=== PATIENT | female | born 1980 | race Caucasian/White ===

== ENCOUNTER 2023-07-07 17:39 | Outpatient (REF) | payer BC, SELFPAY ==
[2023-07-07 21:33] LABS: Calculated LDL 186 mg/dL (<100); Cholesterol 276 mg/dL (<200); HDL Cholesterol 74 mg/dL (40-60); TSH 9.25 uIU/mL (0.36-3.74); Triglyceride 82 mg/dL (<150)
[2023-07-07 21:49] LABS: FREE T4 0.81 ng/dL (0.76-1.46)
== END 2023-07-07 17:40 | disposition home or self-care (01) ==
LOC: NCHCN 17:39
PROVIDERS: PCP Family Medicine; Visit Provider Family Medicine
DX: Z13.220 Encounter for screening for lipoid disorders (principal); E02 Subclinical iodine-deficiency hypothyroidism
CPT/HCPCS: 80061; 84439; 84443

== ENCOUNTER 2023-09-04 14:43 | Outpatient (REF) | payer BC, SELFPAY ==
[2023-09-04 16:21] LABS: Vitamin D 25 Total 33.6 ng/mL (30-100)
[2023-09-04 16:28] LABS: FREE T4 1.11 ng/dL (0.76-1.46); TSH 1.94 uIU/mL (0.36-3.74); Vitamin B12 535 pg/mL (193-986)
[2023-09-04 21:50] LABS: T3,Free 3.7 pg/mL (2.8-5.3)
== END 2023-09-04 14:44 | disposition home or self-care (01) ==
LOC: LBN 14:43
PROVIDERS: PCP Family Medicine; Visit Provider Internal Medicine Endocrinology, Diabetes & Metabolism
DX: E06.3 Autoimmune thyroiditis (principal); E53.8 Deficiency of other specified B group vitamins; E55.9 Vitamin D deficiency, unspecified
CPT/HCPCS: 82306; 82607; 84439; 84443; 84481

== ENCOUNTER 2024-04-22 15:46 | Outpatient (REF) | payer BC, SELFPAY ==
--- OUTSIDE RECORDS SUMMARY | 2024-04-22 15:50 | XMS_ITS | Continuity of Care Document ---
Author Organization [facility] Address [address] [place] [address] Care Team Providers [facility] [place] [facility] Director Name Role Phone KETAN TRAORE Spinal Orthopedic Surgeon Assessment Encounter Date Assessment Date Assessment LastModified by Organization Details LastModified Time 03/24/2024 03/24/2024 The total time devoted to today's encounter, including both the tqme-bc-yfvm time with the patient and/or family/caregi atilio and mjo-yasn-ja-f fidel time I personally spent is 35 minutes. [email or web address] Not available 03/24/2024 19:39:09 Plan of Treatment Reminders Order Date Submit Date Provider Last Modified By Organization Details Last Modified Time Details Appointments Acute 20 024 02:20PM Not available Not available Not available Lab None recorde d. Referral None recorde d. Procedures None recorde d. Surgeries None recorde d. Imaging None recorde d. Medication Orders None recorde d. Patient TargetsNo targets recorded. Patient InstructionsNo instructions recorded. Reason for Referral Infertility Reproductive End ocrinology Referral for Fertility education Referral for Appt with Dr. Sofia Main today 07/09/23 Referring Physician: Ketan Miller, Family Medicine, Encounter Date: 07/08/2023 Problems Name Problem SNOMED Code Status Onset Date Resolution Date Notes Provider Name and Address Organization Details Recorded Time Uses contrace ption 57326974 Completed 200305/20/2023 Not Available [facility] 05:35:53 Depressi ve disorder 98832592 Active [address], [facility] [address] , [facility] 3 14:49:17 Reproduc tidougie bradshawi ng Completed 202211/06/[address], [facility] [address] , [facility] 4 16:20:14 Subclini katerine hypothyr oidism 11531324 Completed 202211/06/[address], [place] [address] , [facility] 4 16:20:14 Hyperlip idemia 87466969 Active [address], [place] [address] , [facility] 3 08:21:23 Nervous system and sense organ diseases 720483658 Completed 202211/06/[address], [place] [address] , [facility] 4 16:20:14 History of musculos keletal disease 827166378 Completed 202211/06/[address], [place] [address] , [facility] 4 16:20:14 History of dysplasi a of cervix 147950946 Active 2022 Problem Code: Z87.410; Problem Code Type: ICD-10; Not Available [facility] 4 05:35:51 Herpesvi adriana infectio n 16851321 Active 2022 Problem Code: B00.9; Problem Code Type: ICD-10; Not Available [facility] 4 05:35:51 [place]weig ht 033239344 Active 2022 Problem Code: E66.3; Problem Code Type: ICD-10; Not Available [facility] 4 05:35:51 Binge eating disorder 920585801 Completed 202211/06/2023 Problem Code: F50.81; Problem Code Type: ICD-10; MD Mary [address], [place], [address] , [facility] 4 16:20:14 Major depressi on, single episode 24890191 Active 202205/20/20 23 - Comments only - Ketan Miller MD - With passive suicidal ideation . Low risk for suicide attempt. After review of options, she is agreeabl e to a trial of medicati on. We will start fluoxeti ne 20 mg daily (which her cat also takes). Reviewed potentia l side effects and timeline to see expected benefits . Follow-u p in 1 month planned. HCM: She received flu vaccine today. Is up-to-da te with Tdap and had recent COVID infectio n. Last Pap 2 years ago, may need another soon given history of SELAM-3 9 years ago. Will pursue prior from [facility] medicine . Problem Code: F32.9; Problem Code Type: ICD-10; Not Available [facility] 4 05:35:52 Suicidal thoughts 2223703 Completed 202211/06/2023 Problem Code: R45.851; Problem Code Type: ICD-10; MD Mary [address], [place], [address] , [facility] 4 16:20:14 History of cardiova scular disease 002056914 Completed 202211/06/2023 Problem Code: Z86.79; Problem Code Type: ICD-10; MD Mary [address], [place], [address] , [facility] 4 16:20:14 Hypothyr oidism 97042371 Active 2022 Problem Code: E03.9; Problem Code Type: ICD-10; Not Available [facility] 4 05:35:52 Reproduc tive care manageme nt Active 202205/20/20 23 - Comments only - Ketan Miller MD - advised daily folate if activing trying to become . Problem Code: Z31.69; Problem Code Type: ICD-10; Not Available [facility] 4 05:35:52 Past pregnanc y history of complica tion of pregnanc y, childbir th and/or puerperi [id number] 4109 Completed 202211/06/2023 Problem Code: Z87.59; Problem Code Type: ICD-10; MD Mary [address], [place], [place], [address] [place] [address] , [facility] 4 16:20:14 Dysuria 04987187 Completed 202211/06/2023 Problem Code: R30.0; Problem Code Type: ICD-10; MD Mary [address], [place], [place], [address] [place] [address] , [facility] 4 16:20:14 Increase d frequenc y of urinatio n 424967869 Completed 202211/06/2023 Problem Code: R35.0; Problem Code Type: ICD-10; MD Mary [address] Dr, [place] [address] , [facility] 4 16:20:14 Lumbosac ral radiculo vipin 4828588 Completed 202205/20/2023 Problem Code: M54.16; Problem Code Type: ICD-10; Not Available [facility] 4 05:35:52 Benign neoplasm of skin 40570638 Completed 202205/20/2023 Problem Code: D23.9; Problem Code Type: ICD-10; Not Available [facility] 4 05:35:53 Dysplasi a of cervix 97291930 Completed 202207/21/2023 Problem Code: N87.9; Problem Code Type: ICD-10; Not Available [facility] 4 05:35:53 Lumbago with sciatica 070940769 Completed 202207/21/2023 Problem Code: M54.42; Problem Code Type: ICD-10; Not Available [facility] 4 05:35:53 Pain in thoracic spine 323790932 Completed 202207/21/2023 Problem Code: M54.9; Problem Code Type: ICD-10; Not Available [facility] 4 05:35:53 Chronic pain 17320094 Completed 202205/20/2023 Problem Code: G89.29; Problem Code Type: ICD-10; Not Available [facility] 4 05:35:53 Prolapse d lumbar interver tebral disc 833831040 Completed 202311/06/[address], [facility] [address] [place] [address] 16:20:38 Chronic low back pain 899831110 Active [address], [facility] [address] [facility] 16:20:49 Acute low back pain 118964757 Active [address], [facility] [address] [place] [address] 17:39:54 Notes:*Problem Name: Allergy Pertussis *ICD-10 Codes: *Problem Status: active *Comments: *Note Date: 02/20/2004 *Problem Name: Ascus Pap, + Hpv *ICD-10 Codes: *Problem Status: active *Comments: *Note Date: 09/25/2009 *Problem Name: Allergy Pertussis *ICD-10 Codes: *Problem Status: inactive *Comments: *Note Date: 02/20/2004 *Problem Name: Ascus Pap, + Hpv *ICD-10 Codes: *Problem Status: inactive *Comments: *Note Date: 09/25/2009 *Problem Name: Hahc Depression *ICD-10 Codes: *Problem Status: inactive *Comments: *Note Date: 07/29/2004 *Problem Name: Allergy Pertussis *ICD-10 Codes: *Problem Status: inactive *Comments: *Problem Code Type: CPT *Note Date: 02/20/2004 *Problem Name: Ascus Pap, + Hpv *ICD-10 Codes: *Problem Status: inactive *Comments: *Problem Code Type: CPT *Note Date: 09/25/2009 *Problem Name: Hahc Depression *ICD-10 Codes: *Problem Status: inactive *Comments: *Problem Code Type: CPT *Note Date: 07/29/2004 Problem Notes None recorded. Procedures Surgical History Date Name Laterality Status Provider Name and Address Organization Details Recorded Time [facility] 14:18:13 Imaging Results None recorded. Procedure Notes None recorded. Medical Equipment None Reported. Allergies Allergen ID Allergen Name Allergen Category Reaction Reaction Severity Criticality Documentation Date Start Date Code Code System Note Provider Name and Address Organization Details Recorded Time 72090 pertussis vaccine medicatio n Not available Not available Not available 06/19/20232003 8080 RxNorm Not Available [facility] 16:22:10 Medications Name Sig Start Date Stop Date Status Note LastModified by Organization Details LastModified Time cyclobenzap rine 10 mg tablet TAKE 1 TABLET BY MOUTH EVERY 8 HOURS NEEDED FOR MUSCLE SPASMS 11/05 completed Not Available Not Available Not Available prednisone 10 mg tablet 11/05 completed Not Available Not Available Not Available Medrol (Geraldo) 4 mg tablets in a dose pack Take as directed on package 2023 active Not Available Not Available Not Avai lable Zithromax 250 mg tablet 4 CAPS NOW 08/20 completed Not Available Not Available Not Available Diflucan 150 mg tablet 1 08/20 completed Not Available Not Available Not Available acyclovir 400 mg tablet 1 twice a day 05/20 completed Not Available Not Available Not Available levothyroxi ne 25 mcg tablet active Not Available Not Available Not Available levothyroxi ne 100 mcg tablet TAKE 1 TABLET BY MOUTH EVERY DAY BEFORE MEDICINES OR FOOD OR VITAMINS active Not Available Not Available No t Available Metrogel Vaginal 0.75 % (37.5 mg/5 gram) 1APP PV QHS 08/05 completed Not Available Not Available Not Available lorazepam 0.5 mg tablet tablet 05/20 completed Not Available Not Available Not Available phenazopyri dine 100 mg tablet Take 1 tablet by mouth three times a day for UTI [place], 2 day supply 11/05 completed Not Available Not Available Not Available cephalexin 500 mg capsule Take 1 capsule by mouth twice a day for UTI. 11/05 completed Not Available Not Available Not Available Ortho-Novum /35 (28) 1 mg-35 mcg tablet once a day 05/20 completed Not Available Not Available Not Available ibuprofen 200 mg tablet active Not Available Not Available Not Available Valtrex 500 mg tablet 1 TAB qd 01/15 completed Not Available Not Available Not Available fluoxetine 20 mg capsule TAKE 1 CAPSULE BY MOUTH EVERY DAY active Not Available Not Available No t Available Clomid 50 mg tablet TAKE 1 TABLET BY MOUTH DAILY ON CYCLE DAYS 5-9. DO NOT TAKE UNTIL AFTER A NEGATIVE TEST active Not Available Not Available No t Available Co Q-10-Vitami n E-Fish Oil 25 mg-150 (90-60) mg-200 unit capsule active Not Available Not Available Not Available folic acid active Not Available Not Av ailable Not Available Vitamin D3 active Not Available Not Av ailable Not Available Vitamin B12 active Not Available Not A vailable Not Available ferrous gluconate 324 mg (38 mg iron) tablet 05/20 completed Not Available Not Available Not Available biotin 2,500 mcg capsule 05/20 completed Not Available Not Available Not Available Multivitami ns 28 mg iron-800 mcg tablet active Not Available Not Available N ot Available Gabby 0.25 mg-35 mcg tablet 11/05 completed Not Available Not Available Not Available Vitals None Recorded Social History Question Answer Notes LastModified by Organizat ion Details LastModified Time Tobacco Smoking Status Never Smoker FRANCISCO SCOTT MA null, [place] - [facility]. 07/07/2023 14:17:46 What Was The Date Of Your Most Recent Tobacco Screening? 12/02/2023 [email or web address] Information not available 12/02/2023 Do You Or Have You Ever Used Any Other Forms Of Tobacco Or Nicotine? No [email or web address] Information not available 07/07/2023 Sex: Female Functional Status None recorded. Mental Status None recorded. Family History Nothing Reported Notes:*Problem: Mother: asth ma, migraines Father: DM, Afib MG: Lung cancer PGF: CAD Maternal cousin: breast cancer Medical History No medical history recorded. Gynecological HistoryNo gynecological history recorded. Obstetrics History GPAL:G 0 P 0 0 0 0 Immunizations Vaccine Type Date Status Provider Name and Address Organization Details Recorded Time COVID-19, mRNA, LNP-S, PF, nisha-sucrose, 30 mcg/0.3 mL 07/07/2023 completed MD [address], [place], [address], [facility] 07/07/2023 17:09:15 Td(adult) unspecified formulation 05/06/2016 completed Not Available [facility] 08/21/2023 05:31:23 Influenza, split virus, quadrivalent, PF 05/20/2023 completed Not Available [facility] 08/21/2023 05:31:23 SARS-COV-2 (COVID-19) vaccine, UNSPECIFIED 12/05/2020 completed Not Available [facility] 08/21/2023 05:31:23 SARS-COV-2 (COVID-19) vaccine, UNSPECIFIED 12/05/2022 completed Not Available [facility] 08/21/2023 05:31:23 SARS-COV-2 (COVID-19) vaccine, UNSPECIFIED 01/02/2021 completed Not Available [facility] 08/21/2023 05:31:23 SARS-COV-2 (COVID-19) vaccine, UNSPECIFIED 07/31/2021 completed Not Available [facility] 08/21/2023 05:31:23 influenza, unspecified formulation 05/16/2016 completed Not Available [facility] 08/21/2023 05:31:23 influenza, unspecified formulation 07/19/2018 completed Not Available [facility] 08/21/2023 05:31:23 Past Encounters Encounter ID Performer Location Encounter Start Date Encounter Closed Date Diagnosis/Indication Diagnosis SNOMED-CT Code Diagnosis ICD10 Code [id number] KETAN MILLER MD [address] [address] 03/24/2024 15:44:25 03/24/2024 17:10:30 Reproductive care management [id number] Z31.9 Health Concerns Section Related Observation LastModified by Organization Detai ls LastModified Time None Recorded Concern Status LastModified by Organization Details LastModified Time None Recorded Payers Encounter Date Sequence Insurance Name Policy Number Policy Day Covered Member ID Day Member ID Guarantor Name 03/24/2024 1 [place] [facility] [id number] Ketan Salcedorux [id number] Ketan Marie [employer] Notes Date Note Type Note Provider Name and Address Organization Details Recorded Time 03/24/2024 text/html HPI Notes: Sabrina nt seen via telehealth to discuss infertility. She has failed 3 rounds of IUI through reproductive medicine, and is considering a live donor. Her next window of opportunity is approaching prior to next scheduled follow-up with reproductive medicine, and she had some questions regarding STI screening, and other more general questions she wanted to run by me. She has been practicing acupuncture, Reiki, and other self-care strategies including careful attention to diet and exercise in an attempt to increase her odds of becoming . She has also taken Clomid to boost egg production. KETAN MILLER MD [address], [place], [address], [facility] - [facility]. 03/24/2024 19:39:49 OBGyn Episode No OBEpisode recorded.
--- OUTSIDE RECORDS SUMMARY | 2024-04-22 15:50 | XMS_ITS | Data Portability ---
Author Organization [facility], [facility] Address [address] [place] [address] Care Team Providers Care Pill Maker Name Role Phone TRAOREKETAN Spinal Orthopedic Surgeon Assessment Encounter Date Assessment Date Assessment LastModified by Organization Details LastModified Time 11/06/2023 11/06/2023 The total time devoted to today's encounter, including both the dirl-zh-mbtx time with the patient and/or family/caregi atilio and ydl-tpnq-mn-f fidel time I personally spent is 40 minutes. Not available 11/06/2023 16:23:01 12/02/2023 12/02/2023 The total time devoted to today's encounter, including both the tmjp-me-hrqd time with the patient and/or family/caregi atilio and enj-voaw-ye-f fidel time I personally spent is 25 minutes. Not available 12/02/2023 18:51:15 03/24/2024 03/24/2024 The total time devoted to today's encounter, including both the hfbt-oq-rfjk time with the patient and/or family/caregi atilio and ehl-okmh-gt-f fidel time I personally spent is 35 minutes. [email or web address] Not available 03/24/2024 19:39:09 Plan of Treatment Reminders Order Date Submit Date Provider Last Modified By Organization Details Last Modified Time Details Appointments Acute 20 2023 02:20P M Not available Not available Not available Lab TSH + free T4, serum 2022 023 [email or web address] n21 [facility] (Registration ), [address] [facility] [place], [address], 07/15/2023 08:14:35 lipid panel, serum 2022 023 [email or web address] n21 [facility] (Registration ), [address] [place] [address] [place], [address], 07/15/2023 08:14:34 venipunct ure 2023 024 [email or web address] Not available 09/04/2023 11:50:21 Referral None recorded. Procedures None recorded. Surgeries None recorded. Imaging None recorded. Medication Orders fluoxetin e 20 mg capsule 2023 024 [id number], [address], [place], [place], [id number], 11/06/2023 16:23:39 Medrol (Geraldo) 4 mg tablets in a dose pack [address] [facility][id number], [address], [place], [place], [id number], 03/24/2024 10:29:41 Patient TargetsNo targets recorded. Patient InstructionsNo instructions recorded. Reason for Referral Infertility Reproductive End ocrinology Referral for Fertility education Referral for Appt with Dr. Sofia Main today 07/09/23 Referring Physician: Ketan Miller, Family Medicine, Encounter Date: 07/08/2023 Results Created Date Observation Date Name Description Value Unit Range Abnormal Flag Note LastModifiedBy Organization Detail LastModifiedTime 07/07/2007/07/2023 LIPID 2 cholesterol 276 mg/dL <200 high Not Available [address] [place], [address] 07/07/2023 21:54:02 07/07/20 23 07/07/2023 LIPID 2 triglyceride 82 mg/dL <150 Not Available [address] [place], [address] 07/07/2023 21:54:02 07/07/2007/07/2023 LIPID 2 HDL cholesterol 74 mg/dL 40-60 Not Available Deepika guillory [address] [place], [address] 07/07/2023 21:54:02 07/07/20 23 07/07/2023 LIPID 2 calculated LDL 186 mg/dL <100 high Natio nal Betina stero l Educa tion Progr am (NCEP -ATPI II) class ifica tions : Betina stero l <200 mg/dL Lopez able Betina stero l 200-2 39 mg/dL Borde rline High Betina stero l >or=2 40 mg/dL High HDL <40 mg/dL Low HDL >or=6 0 mg/dL High LDL <100 mg/dL Optim al LDL 100-1 29 mg/dL Near Optim al/Ab ove Optim al LDL 130-1 59 mg/dL Borde rline High LDL 160-1 89 mg/dL High LDL >or=1 90 mg/dL Very High *The above refer ence range is for adult s 18 years or older . Not Available [address] [place], [address] 07/07/2023 21:54:02 07/07/2007/07/2023 TSH TSH 9.25 uIU/m L 0.36-3 .74 high NOTE: Supra -phys iolog ic doses of Bioti n(B7) may cause false negat yarely resul ts. Not Available [address] [place], [address] 07/07/2023 21:54:03 07/07/2007/07/2023 FREE T4 free T4 0.81 NG/dL 0.76-1 .46 normal Not Available [address] [place], [address] 07/07/2023 21:54:03 07/07/2007/07/2023 TSH, serum or plasm a TSH, serum or plasma 9.25 micro intl_ units /mL 0.36-3 .74 high Not Available Not Available 03/11/2024 23:14:42 07/07/20 23 07/07/2023 T4, free, serum T4, free, serum 0.81 NG/dL 0.76-1 .46 normal Not Available Not Available 03/11/2024 23:14:42 07/07/20 23 07/07/2023 lipid panel , blood cholesterol, total, serum 276 mg/dL <200 high Not Available Not Available 03/11/2024 23:14:41 07/07/20 23 07/07/2023 lipid panel , blood HDL 74 mg/dL 40-60 Not Available Not Availa ble 03/11/2024 23:14:41 07/07/20 23 07/07/2023 lipid panel , blood LDL 186 mg/dL <100 high Not Available Not Availa ble 03/11/2024 23:14:41 07/07/20 23 07/07/2023 lipid panel , blood triglyceride , 12H fasting, qn, serum or plasma 82 mg/dL <150 Not Available Not Available 09/2023 23:14:41 07/13/20 23 07/13/2023 HEMOG KINSEY + PLATE LET WO DIFF hemogram + platelet wo diff HEMOG KINSEY Not Available [facility] (Lab) [address] [place] [address], [id number], 07/13/2023 15:22:57 07/13/20 23 07/13/2023 HEMOG KINSEY + PLATE LET WO DIFF WBC 5.79 TH/cm m 5.00 - 10.00 Not Available [facility] (Lab) [address] [place] [address], [id number], 07/13/2023 15:22:57 07/13/20 23 07/13/2023 HEMOG KINSEY + PLATE LET WO DIFF NRBC % 0.0 % 0.0 - 0.0 Not Available [facility] (Lab) [address] [place] [address], [id number], 07/13/2023 15:22:57 07/13/20 23 07/13/2023 HEMOG KINSEY + PLATE LET WO DIFF NRBC abs count 0.0 mil/c mm 0.0 - 0.0 Not Available [facility] (Lab) [address] [place] [address], [id number], 07/13/2023 15:22:57 07/13/20 23 07/13/2023 HEMOG KINSEY + PLATE LET WO DIFF RBC 4.08 mil/c mm 3.90 - 5.40 Not Available [facility] (Lab) [address] [place] [address], [id number], 07/13/2023 15:22:57 07/13/20 23 07/13/2023 HEMOG KINSEY + PLATE LET WO DIFF hemoglobin 12.1 gm/dL 12.0 - 16.0 Not Available [facility] (Lab) [address] [place] [address], [id number], 07/13/2023 15:22:57 07/13/20 23 07/13/2023 HEMOG KINSEY + PLATE LET WO DIFF hematocrit 36 % 37 - 47 low Not Available [facility] (Lab) [address] [place] [address], 65[address], 07/13/2023 15:22:57 07/13/20 23 07/13/2023 HEMOG KINSEY + PLATE LET WO DIFF MCV 89 fL 82 - 92 Not Available [facility] (Lab) [address] [place] [address], [id number], 07/13/2023 15:22:57 07/13/20 23 07/13/2023 HEMOG KINSEY + PLATE LET WO DIFF MCH 29.7 pg 27.0 - 31.0 Not Available [facility] (Lab) [address] [place] [address], [address], 07/13/2023 15:22:57 07/13/20 23 07/13/2023 HEMOG KINSEY + PLATE LET WO DIFF MCHC 33.5 % 32.0 - 36.0 Not Available [facility] (Lab) [address] [place] [address], [address], 07/13/2023 15:22:57 07/13/20 23 07/13/2023 HEMOG KINSEY + PLATE LET WO DIFF RDW-SD 41.2 fL 39.0 - 49.0 Not Available [facility] (Lab) [address] [place] [address], [address], 07/13/2023 15:22:57 07/13/20 23 07/13/2023 HEMOG KINSEY + PLATE LET WO DIFF platelet count 346 TH/cm m 150 - 450 Not Available [facility] (Lab) [address] [place] [address], [address], 07/13/2023 15:22:57 07/13/20 23 07/13/2023 ABO + RH TYPIN G* ABO + Rh typing* ABO and Rh BLOOD GROUP ING Not Available [facility] (Lab) [address] [place] [address], [address], 07/13/2023 15:50:03 07/13/20 23 07/13/2023 ABO + RH TYPIN G* blood group A Not Available [facility] (Lab) [address] [place] [address], [address], 07/13/2023 15:50:03 07/13/20 23 07/13/2023 ABO + RH TYPIN G* Rh (D) POSITI VE Not Available [facility] (Lab) [address] [place] [address], [address], 07/13/2023 15:50:03 07/13/20 23 07/14/2023 ESTRA DIOL E2 estradiol E2 _ESTR ADIOL _ Estra diol Repor anmol: 07/13 23:28 Statu s=F ----- ----- ----- ----- ----- ----- ----- ----- ----- ----- ----- ----- ----- ----- ----- ----- TEST RESUL T FLAG RANGE UNITS ----- ----- ----- ----- ----- ----- ----- ----- ----- ----- ----- ----- ----- ----- ----- ----- Estra diol 37 See Note pg/mL 07/13.2 332.r fl.CO MYRA Patrick NOTE: FEMAL E REFER ENCE RANGE S: MENST RUATI NG By cycle day relat yarely to LH peak Folli cular (-12 to -4 days) 20-14 4 pg/mL Midcy sharron (-3 to +2 days) 64-35 7 pg/mL Lutea l (+4 t0 +12 days) 56-21 4 pg/mL POSTM ENOPA USAL <32 pg/mL *Cros s react ivity with Fulve stran t could lead to a false ly eleva anmol estra diol resul t in patie nts treat ed with this drug. Test perfo rmed or refer red by [facility] [address], [place] [address] 07/14.0 742.A LS.to [phone] via fax Not Available [facility] (Lab) [address] [place] [address], [address], 07/14/2023 07:44:08 07/13/20 23 07/14/2023 THYRO PEROX IDASE ANTIB SAULO thyroperoxid ase antibody _THYR OPERO XIDAS E ANTIB ODY_ Thyro perox idase Antib saulo Repor anmol: 07/13 23:33 Statu s=F ----- ----- ----- ----- ----- ----- ----- ----- ----- ----- ----- ----- ----- ----- ----- ----- TEST RESUL T FLAG RANGE UNITS ----- ----- ----- ----- ----- ----- ----- ----- ----- ----- ----- ----- ----- ----- ----- ----- Thyro perox idase Antib saulo >1300 H <=60 U/mL 07/13.2 337.r fl.CO MPLET E.MAY T Test perfo rmed or refer red by [facility] [address], [place] [address] 07/14.0 742.A LS.to [phone] via fax Not Available [facility] (Lab) [address] [place] [address], [address], 07/14/2023 07:44:11 07/13/20 23 07/14/2023 FSH (FOLI SHARRON STIMU LATIN G HORMO NE) FSH (folicle stimulating hormone) _FSH (FOLI SHARRON STIMU LATIN G HORMO NE)_ FSH Repor anmol: 07/13 23:34 Statu s=F ----- ----- ----- ----- ----- ----- ----- ----- ----- ----- ----- ----- ----- ----- ----- ----- TEST RESUL T FLAG RANGE UNITS ----- ----- ----- ----- ----- ----- ----- ----- ----- ----- ----- ----- ----- ----- ----- ----- FSH 8.4 See Note mIU/m L 07/13.2 338.r fl.CO MPLET E.MAY T NOTE: Femal e FSH Refer ence Range s (Mens truat ing): PHYSI OLOGI KATERINE STATU S REFER ENCE RANGE ----- ----- ----- ----- ----- ----- ----- Folli cular (-12 to -4 days) : 2.5 - 10.2 mIU/m L Midcy sharron (-3 to +2 days) : 3.4 - 33.4 mIU/m L Lutea l (+4 to +12 days) : 1.5 - 9.1 mIU/m L Postm enopa usal: 23.0 - 116.3 mIU/m L Refer ence Range s for pedia tric non-m enstr uajohn g femal e patie nts have not been estab lishe d. Test perfo rmed or refer red by [facility] nt [facility] [address], [place] [facility] [place] [address] 07/14.0 742.A LS.to [phone] via fax Not Available [facility] (Lab) [address] [place] [address], [address], 07/14/2023 07:44:12 07/13/20 23 07/14/2023 LH (LUTE INIZI NG HORMO NE) LH (luteinizing hormone) _LH (LUTE INIZI NG HORMO NE)_ LH Repor anmol: 07/13 23:34 Statu s=F ----- ----- ----- ----- ----- ----- ----- ----- ----- ----- ----- ----- ----- ----- ----- ----- TEST RESUL T FLAG RANGE UNITS ----- ----- ----- ----- ----- ----- ----- ----- ----- ----- ----- ----- ----- ----- ----- ----- LH 4.6 See Note mIU/m L 07/13.2 338.r fl.CO MYRA Patrick NOTE: Femdaily iniguez Refer ence Range s: Pre-P ubert al: <6.0 mIU/m L ----- ----- -- Menst ruati ng: ----- ----- -- Folli cular Phase (-12 to -4 days: 1.9 - 12.5 mIU/m L Midcy sharron(- 3 to +2 days) : 8.7 - 76.3 mIU/m L Lutea l Phase (+4 to +12 days) : 0.5 - 16.9 mIU/m L Post Menop ausal : 15.9 - 54.0 mIU/m L ----- ----- ----- Test perfo rmed or refer red by [facility] [address] [facility] [address], [place] [facility] [place] [address] 07/14.0 743.A LS.to [phone] via fax Not Available [facility] (Lab) [address] [place] [address], [address], 07/14/2023 07:44:14 07/13/2007/14/2023 VITAM IN D 25 OH TOTAL * vitamin D 25 oh total* _VITA MIN D 25 OH TOTAL _ Vitam in D, Total (25 OH) Repor anmol: 07/14 09:33 Statu s=F ----- ----- ----- ----- ----- ----- ----- ----- ----- ----- ----- ----- ----- ----- ----- ----- TEST RESUL T FLAG RANGE UNITS ----- ----- ----- ----- ----- ----- ----- ----- ----- ----- ----- ----- ----- ----- ----- ----- Vitam in D, Total (25 OH) 29 L 30-10 0 ng/mL Vitam in D 25,OH Inter preti ve Range s: ----- ----- ----- ----- ----- ----- ----- Defic iency : <10.0 ng/mL Insuf ficie ncy: 10.0 - 30.0 ng/mL Suffi cienc y: 30.0 - 100.0 ng/mL Toxic ity: >100. 0 ng/mL Test perfo rmed or refer red by [facility] [address], [place] [address] 07/14. 125.X [facility] REF 07/14 125.A LS.to [phone] via fax Not Available [facility] (Lab) [address] [place] [address], [id number], 07/14/2023 11:25:34 07/13/20 23 07/14/2023 RUBEL LA IGG ANTIB SAULO rubella IgG antibody _RUBE LLA IGG ANTIB ODY_ Rubel la IgG Ab Repor anmol: 07/14 09:58 Statu s=F ----- ----- ----- ----- ----- ----- ----- ----- ----- ----- ----- ----- ----- ----- ----- ----- TEST RESUL T FLAG RANGE UNITS ----- ----- ----- ----- ----- ----- ----- ----- ----- ----- ----- ----- ----- ----- ----- ----- Rubel la IgG Ab Posit yarely See Note 07/14 005.r fl.CO MYRA CandelarioMAY T Posit yarely for IgG antib odies to Rubel la virus . Test perfo rmed or refer red by [facility] [address], [facility] [address] 07/14.1 125.A LS.to [phone] via fax Not Available [facility] (Lab) [address] [place] [address], [id number], 07/14/2023 11:26:34 07/13/20 23 07/14/2023 RUBEO LA IGG ANTIB SAULO* rubeola IgG antibody* _RUBE CHRISTINA IGG ANTIB ODY_ Measl es IgG Antib saulo Repor anmol: 07/14 10:17 Statu s=F ----- ----- ----- ----- ----- ----- ----- ----- ----- ----- ----- ----- ----- ----- ----- ----- TEST RESUL T FLAG RANGE UNITS ----- ----- ----- ----- ----- ----- ----- ----- ----- ----- ----- ----- ----- ----- ----- ----- Measl es IgG Antib saulo Posit yarely See Note 07/14.1 025.r fl.CO MPLCHIOMA Patrick Prese nce of detec table measl es virus IgG antib odies . Test perfo rmed or refer red by [facility] [address], [facility] [address] 07/14.1 125.A LS.to [phone] via fax Not Available [facility] (Lab) [address] [place] [address], 15981, 07/14/2023 11:26:36 07/13/20 23 07/14/2023 VARIC DORINA IGG ANTIB SAULO* varicella IgG antibody* _VARI DAVE IGG ANTIB ODY_ Varic dorina IgG Antib saulo Repor anmol: 07/14 10:17 Statu s=F ----- ----- ----- ----- ----- ----- ----- ----- ----- ----- ----- ----- ----- ----- ----- ----- TEST RESUL T FLAG RANGE UNITS ----- ----- ----- ----- ----- ----- ----- ----- ----- ----- ----- ----- ----- ----- ----- ----- Varic dorina IgG Antib saulo Posit yarely See Note 07/14. 025.r fl.CO MYRA Patrick Prese nce of det table Varic dorina Zoste r virus IgG antib odies . Test perfo rmed or refer red by [facility] [address] [place] [address] 07/14. 125.A LS.to [phone] via fax Not Available [facility] (Lab) [address] [place] [address], [id number], 07/14/2023 11:26:37 07/13/20 23 07/14/2023 SYPHI LIS SEROL OGY* syphilis serology* _SYPH ILIS SEROL OGY_ Syphi lis Serol ogy Repor anmol: 07/14 10:38 Statu s=F ----- ----- ----- ----- ----- ----- ----- ----- ----- ----- ----- ----- ----- ----- ----- ----- TEST RESUL T FLAG RANGE UNITS ----- ----- ----- ----- ----- ----- ----- ----- ----- ----- ----- ----- ----- ----- ----- ----- Syphi lis Serol ogy Negat yarely Negat yarely 07/14. 045.r fl.CO MPLET E.MAY T Test perfo rmed or refer red by [facility] [address], [place] [address] 07/14.1 125.A LS.to [phone] via fax Not Available [facility] (Lab) [address] [place] [address], [id number], 07/14/2023 11:26:38 07/13/2007/14/2023 ANTI THYRO GLOBU RADHA ANTIB SAULO anti thyroglobuli n antibody _ANTI THYRO GLOBU RADHA ANTIB ODY_ Thyro globu radha Antib saulo Repor anmol: 07/14 10:40 Statu s=F ----- ----- ----- ----- ----- ----- ----- ----- ----- ----- ----- ----- ----- ----- ----- ----- TEST RESUL T FLAG RANGE UNITS ----- ----- ----- ----- ----- ----- ----- ----- ----- ----- ----- ----- ----- ----- ----- ----- Thyro globu radha Antib saulo 345 H <=60 U/mL 07/14. 045.r fl.CO MPLET E.MAY T Test perfo rmed or refer red by [facility] [address] [place] [place] [address] 07/14.1 125.A LS.to [phone] via fax Not Available [facility] (Lab) [address] [place], [address], 07/14/2023 11:26:39 07/13/20 23 07/14/2023 HEP C ANTIB SAULO WITH REFLE X PCR hep C antibody with reflex PCR _HEP C ANTIB SAULO WITH REFLE X TO HCV RNA BY PCR_ Hep C Ab w Refle x PCR Repor anmol: 07/14 10:43 Statu s=F ----- ----- ----- ----- ----- ----- ----- ----- ----- ----- ----- ----- ----- ----- ----- ----- TEST RESUL T FLAG RANGE UNITS ----- ----- ----- ----- ----- ----- ----- ----- ----- ----- ----- ----- ----- ----- ----- ----- Hep C Ab w Rfx PCR Negat yarely Negat yarely 07/14.1 048.r fl.CO MPLET E.MAY T Test perfo rmed or refer red by [facility] [address] [place] [place] [address] 07/14.1 125.A LS.to [phone] via fax Not Available [facility] (Lab) [address] [place] [address], [id number], 07/14/2023 11:26:40 07/13/20 23 07/14/2023 HIV 1/2 ANTIG EN AND ANTIB SAULO SCREE N HIV 1/2 antigen and antibody screen _HIV ANTIB SAULO SCREE N_ HIV 1/2 Antig en and Antib saulo Repor anmol: 07/14 11:12 Statu s=F ----- ----- ----- ----- ----- ----- ----- ----- ----- ----- ----- ----- ----- ----- ----- ----- TEST RESUL T FLAG RANGE UNITS ----- ----- ----- ----- ----- ----- ----- ----- ----- ----- ----- ----- ----- ----- ----- ----- HIV 1/2 Antig en and Negat yarely Negat yarely 07/14.1 116.r fl.CO MPLET E.MAY T Antib saulo If acute HIV-1 infec tion is suspe cted in a high risk patie nt, submi t plasm a speci men for HIV-1 RNA quant itati on test. Fourt h Gener ation assay perfo rmed on the [employer] ur XPT. Test perfo rmed or refer red by [facility] nt [facility] [address] [place] [place] [address] 07/14.1 126.A LS.to [phone] via fax Not Available [facility] (Lab) [address] [place] [address], [address], 07/14/2023 11:27:36 07/13/2007/14/2023 HEP B SURF ANTIG EN* hep B surf antigen* _HEP B SURF ANTIG EN_ Hep B Surfa ce Ag Repor anmol: 07/14 11:26 Statu s=F ----- ----- ----- ----- ----- ----- ----- ----- ----- ----- ----- ----- ----- ----- ----- ----- TEST RESUL T FLAG RANGE UNITS ----- ----- ----- ----- ----- ----- ----- ----- ----- ----- ----- ----- ----- ----- ----- ----- Hep B Surfa ce Ag Negat yarely Negat yarely 07/14.1 130.r fl.CO MPLET E.MAY T Test perfo rmed or refer red by [facility] [address], [place] [address] 07/14. 211.A LS.to [phone] via fax Not Available [facility] (Lab) [address] [place] [address], [id number], 07/14/2023 12:11:41 07/13/2007/14/2023 CHLAM YDIA/ GC AMPLI FIED PROBE * chlamydiA/GC amplified probe* _CHLA MYDIA /GC AMPLI FIED PROBE _ Chlam ydia/ GC Ampli fied RNA Repor anmol: 07/14 13:38 Statu s=F ----- ----- ----- ----- ----- ----- ----- ----- ----- ----- ----- ----- ----- ----- ----- ----- TEST RESUL T FLAG RANGE UNITS ----- ----- ----- ----- ----- ----- ----- ----- ----- ----- ----- ----- ----- ----- ----- ----- Chlam ydia Resul t Negat yarely Negat yarely 07/14.1 343.r fl.CO MPLET E.DECEMBER T GC Resul t Negat yarely Negat yarely 07/14.1 343.r fl.CO MPLET E.DECEMBER T Sourc e:Uri ne A first catch urine speci men is accep table for detec tion of Gonor ekta and Chlam ydia, but might detec t up to 10% fewer infec tions when santy red with vagin al and endoc ervic al swab sampl es. Test perfo rmed or refer red by [facility] nt [facility] [address], [place] [facility] [place] [address] 07/14.1 354.A LS.to [phone] via fax Not Available [facility] (Lab) [address] [place] [address], [id number], 07/14/2023 13:54:56 07/13/2007/15/2023 CMV IGM AND IGG ANTIB ODIES (CYTO MEGAL O)* CMV IgM and IgG antibodies (cytomegalo) * _CMV IGM AND IGG ANTIB ODIES (CYTO MEGAL O)_ Cytom egalo virus Ab, IgM and IgG, S Repor anmol: 07/15 09:03 Statu s=F ----- ----- ----- ----- ----- ----- ----- ----- ----- ----- ----- ----- ----- ----- ----- ----- TEST RESUL T FLAG RANGE UNITS ----- ----- ----- ----- ----- ----- ----- ----- ----- ----- ----- ----- ----- ----- ----- ----- Cytom egalo virus Ab, IgM, Negat yarely Negat yarely 07/15.1 006.r SamEnrico.CO Frio DistributorsET E.DECEMBER T .2411 9-0 S Cytom egalo virus Ab, IgG, Posit yarely A Negat yarely 07/15. 006.r SamEnrico.SquareHubET E.DECEMBER T .1394 9-3 S Test Perfo rmed by: [facility] [place] [address], [place] [address] Lab Direc tor: Venancio Chaudhary Ph.D. ; CLIA# [id number] 07/15. 032.A LS.to [phone] via fax Not Available [facility] (Lab) [address] [place], [address], 07/15/2023 10:32:58 07/13/20 23 07/15/2023 ANTI MERYL YEH (AMH) * anti mullerian hormone (amh)* _ANTI MERYL YEH AMH_ Krish Acevedo Repor anmol: 07/15 10:26 Statu s=F ----- ----- ----- ----- ----- ----- ----- ----- ----- ----- ----- ----- ----- ----- ----- ----- TEST RESUL T FLAG RANGE UNITS ----- ----- ----- ----- ----- ----- ----- ----- ----- ----- ----- ----- ----- ----- ----- ----- Antim Krish Coombs 1.5 0.03- 5.5 ng/mL 07/15. 129.r SamEnrico.[employer] E.DECEMBER T .4510 4-0 ----- ----- ----- ----A LEONID ONAL INFOR PETROS N---- ----- ----- ----- The testi ng metho d is an elect tim milum inesc ence assay manuf actur ed by [employer] [employer] and perfo rmed on the Carolyn syste m. Value s obtai demar with diffe rent assay metho ds or kits may be diffe rent and canno t be used inter low eably . This test has been modif ied from the manuf actur ers instr uctio ns. Its perfo rmanc e gregory cteri stics were deter mined by [facility] in a mercedes r consi stent with KALLIE jaime. This test has not been clear ed or appro lorena by the U.S. Food and Drug Admin istra tion. Test Perfo rmed by: [facility] [place] [address], [place] [address] Lab Direc tor: Venancio Chaudhary Ph.D. ; CLIA# [id number] 07/15.1 150.A LS.to [phone] via fax Not Available [facility] (Lab) [address] [place] [address], [id number], 07/15/2023 11:51:07 07/13/20 23 07/15/2023 HEP B CORE ANTIB SAULO TOTAL hep B core antibody total _HEP B CORE ANTIB SAULO TOTAL _ Hep B Core Antib saulo Repor anmol: 07/15 17:12 Statu s=F ----- ----- ----- ----- ----- ----- ----- ----- ----- ----- ----- ----- ----- ----- ----- ----- TEST RESUL T FLAG RANGE UNITS ----- ----- ----- ----- ----- ----- ----- ----- ----- ----- ----- ----- ----- ----- ----- ----- Hep B Core Antib saulo Negat yarely Negat yarely 07/15.1 720.r fl.CO MPLET E.MAY T Test perfo rmed or refer red by [facility] [address] [place] [place] [address] 07/15.1 831.K LT.to [phone] via fax Not Available [facility] (Lab) [address] [place] [address], [id number], 07/15/2023 18:33:05 09/04/19 24 09/04/2023 VITAM IN D 25 TOTAL vitamin D 25 total 33.6 NG/mL 30-100 normal Refer ence Guide lines : Defic ient: <10 ng/ml Insuf ficie nt: 10-30 ng/ml Suffi cient : 30-10 0 ng/ml Toxic : >100 ng/ml Not Available [address] [place] [place], [address] 09/04/2023 16:25:28 09/04/19 24 09/04/2023 TSH TSH 1.94 uIU/m L 0.36-3 .74 normal NOTE: Supra -phys iolog ic doses of Bioti n(B7) may cause false negat yarely resul ts. Not Available [address] [facility] [place], [address] 09/04/2023 16:34:31 09/04/19 24 09/04/2023 FREE T4 free T4 1.11 NG/dL 0.76-1 .46 normal Not Available [address] [place], [address] 09/04/2023 16:34:31 09/04/19 24 09/04/2023 VITAM IN B12 vitamin B12 535 pg/mL 193-98 6 normal Not Available [address] [place], [address] 09/04/2023 16:34:31 09/04/19 24 09/04/2023 T3,FR EE T3,free 3.7 pg/mL 2.8-5. 3 Test perfo rmed or refer red by [facility] [address], [place] [address] Not Available [facility] [address] [facility] [place], [address] 2023 14:43:12 12/24/19 24 12/24/2023 TSH THYRO ID STIMU LATIN G HORMO NE* TSH 1.880 uIU/m L 0.360 - 3.740 Not Available [facility] (Lab) [address] [place] [address], [address], 12/24/2023 20:37:45 12/24/19 24 12/24/2023 FREE THYRO XINE (FREE T4)* free thyroxine 1.06 NG/dL 0.76 - 1.46 Not Available [facility] (Lab) [address] [place] [address], [address], 12/24/2023 20:37:46 12/24/19 24 12/25/2023 T3 FREE T3 free T3 FREE T3, Free Repor anmol: 12/23 22:32 Statu s=F ----- ----- ----- ----- ----- ----- ----- ----- ----- ----- ----- ----- ----- ----- ----- ----- TEST RESUL T FLAG RANGE UNITS ----- ----- ----- ----- ----- ----- ----- ----- ----- ----- ----- ----- ----- ----- ----- ----- T3, Free 3.5 2.8-5 .3 pg/mL Test perfo rmed or refer red by [facility] [address], [place] [address] 12/24.0 658.X MT.SE NT REF Not Available [facility] (Lab) [address] [place], [address], 12/25/2023 06:59:29 04/22/20 24 04/22/2024 pregn marlene test, urine HCG negati ve Not Available [address], [place], [address], 04/22/2024 15:04:55 Result Notes None recorded. 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 Completed 202211/06/[address], [place], [address] , [facility] 4 16:20:14 Hyperlip idemia 45048202 Active [address], [place], [address] , [facility] 3 08:21:23 Nervous system and sense organ diseases 845047458 Completed 202211/06/[address], [place], [address] , [facility] 4 16:20:14 History of musculos keletal disease 825713090 Completed 202211/06/[address], [place], [address] , [facility] 4 16:20:14 History of dysplasi a of cervix 907696784 Active 2022 Problem Code: Z87.410; Problem Code Type: ICD-10; Not Available [facility] 4 05:35:51 Herpesvi adriana infectio n 11227534 Active 2022 Problem Code: B00.9; Problem Code Type: ICD-10; Not Available [facility] 4 05:35:51 Overweig ht 568089253 Active 2022 Problem Code: E66.3; Problem Code Type: ICD-10; Not Available [facility] 4 05:35:51 Binge eating disorder 861634837 Completed 202211/06/2023 Problem Code: F50.81; Problem Code Type: ICD-10; MD [address], [place], [address] , [facility] 4 16:20:14 Major depressi on, single episode 49229811 Active 202205/20/20 23 - Comments only - [...] 9 years ago. Will pursue prior from very internal medicine . Problem Code: F32.9; Problem Code Type: ICD-10; Not Available [facility] 4 05:35:52 Suicidal thoughts 5968811 Completed 202211/06/2023 Problem Code: R45.851; Problem Code Type: ICD-10; MD Mary [address], [facility] [address] , [facility] 16:20:14 History of cardiova scular disease 678560697 Completed 202211/06/2023 Problem Code: Z86.79; Problem Code Type: ICD-10; MD [address], [facility] [address] [facility] 16:20:14 Hypothyr oidism 80469161 Active 2022 Problem Code: E03.9; Problem Code Type: ICD-10; Not Available [facility] 05:35:52 Reproduc tive care manageme nt Active 202205/20/20 23 - Comments only - Ketan Miller MD - advised daily folate if activing trying to become . Problem Code: Z31.69; Problem Code Type: ICD-10; Not Available [facility] 05:35:52 Past pregnanc y history of complica tion of pregnanc y, childbir th and/or puerperi 58432148034 4109 Completed 202211/06/2023 Problem Code: Z87.59; Problem Code Type: ICD-10; MD Mary [address], [facility] [address] , [facility] 16:20:14 Dysuria 34899427 Completed 202211/06/2023 Problem Code: R30.0; Problem Code Type: ICD-10; MD Mary [address], [facility] [address] , [facility] 16:20:14 Increase d frequenc y of urinatio n 010431132 Completed 202211/06/2023 Problem Code: R35.0; Problem Code Type: ICD-10; MD [address], [place], [address] , [facility] 16:20:14 Lumbosac ral radiculo vipin 8461364 Completed 202205/20/2023 Problem Code: M54.16; Problem Code Type: ICD-10; Not Available [facility] 4 05:35:52 Benign neoplasm of skin 40373460 Completed 202205/20/2023 Problem Code: D23.9; Problem Code Type: ICD-10; Not Available [facility] 4 05:35:53 Dysplasi a of cervix 96037648 Completed 202207/21/2023 Problem Code: N87.9; Problem Code Type: ICD-10; Not Available [facility] 4 05:35:53 Lumbago with sciatica 557145463 Completed 202207/21/2023 Problem Code: M54.42; Problem Code Type: ICD-10; Not Available [facility] 4 05:35:53 Pain in thoracic spine 915313192 Completed 202207/21/2023 Problem Code: M54.9; Problem Code Type: ICD-10; Not Available [facility] 4 05:35:53 Chronic pain 22179980 Completed 202205/20/2023 Problem Code: G89.29; Problem Code Type: ICD-10; Not Available [facility] 4 05:35:53 Prolapse d lumbar interver tebral disc 315656716 Completed 202311/06/[address], [place], [address] , [facility] 16:20:38 Chronic low back pain 455529827 Active [address], [place], [address] , [facility] 4 16:20:49 Acute low back pain 542756498 Active [address], [facility] [address] [facility] 4 17:39:54 Notes:*Problem Name: Allergy Pertussis *ICD-10 Codes: [...] Address Organization Details Recorded Time Appendectomy completed FRANCISCO SCOTT MA [facility] 07/07/2023 14:18:13 Imaging Results None recorded. Procedure Notes None recorded. Medical Equipment None Reported. Allergies Allergen ID Allergen Name Allergen Category Reaction Reaction Severity Criticality Documentation Date Start Date Code Code System Note Provider Name and Address Organization Details Recorded Time 62355 pertussis vaccine medicatio n Not available Not available Not available 06/19/20232003 8080 RxNorm Not Available [facility] 3 16:22:10 Medications Name Sig Start Date Stop [...] Not Available Not Available Not Available Ortho-Novum 35 (28) 1 mg-35 mcg tablet once a [...] Not Available Not Available Not Available Vitals Date Recorded Body weight Body temperature Oxygen saturation Oxygen saturation in Arterial blood by Pulse oximetry Heart rate Systolic blood pressure Diastolic blood pressure Provider Name and Address Organization Details Last Updated DateTime 3 05693.9 1 g 97.7 [degF] 99 % 99 % 66 /min 110 mm[Hg] 82 mm[Hg] ANDRES SCOTT MA [facility], [facility] 3 14:21:09 Date Recorded Body height Body mass index (BMI) Body weight Body temperature Oxygen saturation Oxygen saturation in Arterial blood by Pulse oximetry Heart rate Systolic blood pressure Diastolic blood pressure Provider Name and Address Organization Details Last Updated DateTime 4 163.398 2 cm 28 kg/m2 11742.7 4 g 98.2 [degF] 97 % 97 % 84 /min 108 mm[Hg] 78 mm[Hg] KALEB GARCIA MA [facility], [facility]. 4 15:46:44 Date Recorded Body height Body mass index (BMI) Body weight Body temperature Oxygen saturation Oxygen saturation in Arterial blood by Pulse oximetry Heart rate Systolic blood pressure Diastolic blood pressure Provider Name and Address Organization Details Last Updated DateTime 4 163.398 2 cm 27.8 kg/m2 08043.6 6 g 97.5 [degF] 99 % 99 % 62 /min 112 mm[Hg] 78 mm[Hg] CHANTE HIGGINS LPN [facility], [facility] 4 17:10:21 Date Recorded Body height Body mass index (BMI) Body weight Body temperature Oxygen saturation Oxygen saturation in Arterial blood by Pulse oximetry Heart rate Systolic blood pressure Diastolic blood pressure Provider Name and Address Organization Details Last Updated DateTime 4 163.398 2 cm 28.9 kg/m2 20233.7 g 97.5 [degF] 98 % 98 % 85 /min 118 mm[Hg] 70 mm[Hg] RAJ BONNER RN [facility] 14:28:32 Social History Question Answer Notes LastModified by Organizat ion Details LastModified Time Tobacco Smoking Status Never Smoker FRANCISCO SCOTT MA null, [facility] 07/07/2023 14:17:46 What Was The Date Of Your Most Recent Tobacco Screening? 12/02/2023 [email or web address] Information not available 12/02/2023 Do You Or Have You Ever Used Any Other Forms Of Tobacco Or Nicotine? No Information not available 07/07/2023 Sex: Female Functional [...] mL 07/07/[address] completed MD [address], [place], [address], [facility] 07/07/2023 17:09:15 Td(adult) unspecified formulation 05/06/2016 completed Not Available [facility] 08/21/2023 05:31:23 Influenza, split virus, quadrivalent, PF 05/20/2023 completed Not Available [facility] 08/21/2023 05:31:23 SARS-COV-2 (COVID-19) vaccine, UNSPECIFIED 12/05/2020 completed Not Available [facility] 08/21/2023 05:31:23 SARS-COV-2 (COVID-19) vaccine, UNSPECIFIED 12/05/2022 completed Not Available [facility] 08/21/2023 05:31:23 SARS-COV-2 (COVID-19) vaccine, UNSPECIFIED 01/02/2021 completed Not Available [facility] 08/21/2023 05:31:23 SARS-COV-2 (COVID-19) vaccine, UNSPECIFIED 07/31/2021 completed Not Available [facility] 08/21/2023 05:31:23 influenza, unspecified formulation 05/16/2016 completed Not Available [facility] 08/21/2023 05:31:23 influenza, unspecified formulation 07/19/2018 completed Not Available [facility] 08/21/2023 05:31:23 Past Encounters Encounter ID Performer Location Encounter Start Date Encounter Closed Date Diagnosis/Indication Diagnosis SNOMED-CT Code Diagnosis ICD10 Code [id number] KETAN MILLER MD [address] [address] 07/07/2023 14:02:36 07/07/2023 16:37:37 Depressive disorder 76627792 F32.A Hyperlipid emia screening 131622848 Z13.220 Fertility education 2685 51991 Z31.62 Subclinica l hypothyroidism 07471428 E02 Administra tion of SARS-CoV-2 vaccine 5753193717 Z23 [id number] [address] [address] 09/04/2023 10:36:21 09/04/2023 14:54:06 Vitamin D deficiency 91533786 E55.9 Vitamin B1 2 deficiency (non anemic) 90453638 E53.8 Mary Carmen thyroiditis 21 877229 E06.3 [id number] KETAN MILLER MD [address] [address] 11/06/2023 15:39:23 11/06/2023 16:16:58 Depressive disorder 02252970 F32.A Hypothyroidism 00108334 E03.9 Overweight 512281372 E66 .3 Major depr ession, single episode 42200615 F32.9 [id number] KETAN MILLER MD [address] [address] 12/02/2023 17:03:25 12/02/2023 18:04:03 Acute low back pain 086428113 M54.50 [id number] KETAN MILLER MD [facility] [address] [place] [address] 03/24/2024 15:44:25 03/24/2024 17:10:30 Reproductive care management 714959424 Z31.9 [id number] ROWENA BURNS MD [facility] [address] [place] [address] 04/22/2024 14:10:39 04/22/2024 15:21:19 Contraception care management 313657717 Z30.9 Acute low back pain 2788 99225 M54.50 Health Concerns Section Related Observation LastModified by Organization Detai ls LastModified Time None Recorded Concern Status LastModified by Organization Details LastModified Time None Recorded Advance Directives Directive None Recorded Payers Encounter Date Sequence Insurance Name Policy Number Policy Day Covered Member ID Day Member ID Guarantor Name 07/07/2023 1 [place] [employer] [place] [id number] Ketan A Mutrux [id number] Ketan Marie Mutrux 09/04/2023 1 [place] [id number] Ketan A Mutrux [id number] Ketan A Mut[employer]x 11/06/2023 1 [place] [id number] Ketan A Mutrux [id number] Ketan A Mut[employer]x 12/02/2023 1 [place] [id number] Ketan A Mutrux [id number] Ketan A Mut[employer]x 03/24/2024 1 [place] [id number] Ketan A Mutrux [id number] Ketan A Mutrux Notes Date Note Type Note Provider Name and Address Organization Details Recorded Time 07/07/2023 text/html HPI Notes: Briseidae nt seen for follow-up depression, Discuss fertility. Doing much better mood montalvo, unsure how much to attribute to medication and how much to improve her relationship situation. She does think her outlook has improved as well. No side effects from the low-dose fluoxetine which she is taking regularly. KETAN MILLER MD [address], [place], [address], [facility]. 07/07/2023 17:09:21 11/06/2023 text/html HPI Notes: Sabrina nt seen for follow-up depression. Reports 2 days that were really rough past few months. Work has been stressful, and she learned that she has an endometrial polyp and small fibroid that were recommended to be removed so she has a hysteroscopy scheduled. She tried at home intrauterine insemination once without success. She has tried counseling with 4 different therapists and did not have success with any of them. She is trying to be physically active and often makes it to 10,000 steps per day, but feels she can make further progress. She has made dietary improvements since morning of her high cholesterol in the fall. She is frustrated by recent weight gain that occurred in the past month. She was taking control pills for a few weeks per reproductive endocrine which may have been a factor. She also started on levothyroxine fairly recently by endocrine for hypothyroidism. MD [address], [place], [address], [facility]. 11/06/2023 16:24:17 12/02/2023 text/html HPI Notes: The patient presents for an acute visit with a chief complaint of low back pain, which they believe was brought on by mild weight exercises performed yesterday morning. They report radicular pain in the left lumbar region, where she has a hx of herniated disc, referring into the groin region bilaterally and into the left buttock. the patient has experienced similar exacerbation in the past that was relieved by an injection in January of the previous year. The patient has tried various treatments for prior episodes, including rest, exercise, muscle relaxers, and anti-inflammatories , but reports that steroids have been the most effective in managing their pain. They took three ibuprofen yesterday morning and afternoon, which provided temporary relief, but the pain returned. The patient is currently experiencing slight difficulty lifting their left leg due to pain. The patient had an MRI in November of the previous year, which revealed bulging discs in L4/5 and L5/S1. The patient has considered the possibility of needing another injection but hopes to avoid it. The patient has previously engaged in physical therapy and is familiar with various exercises and techniques for managing their back pain. They have not used an inversion table but are open to trying it as a potential treatment option. MD [address], [place], [address], [facility]. 12/02/2023 18:51:30 03/24/2024 text/html HPI Notes: Sabrina nt seen [...] also taken Clomid to boost egg production. MD [address], [place], [address], [facility], [facility]. 03/24/2024 19:39:49 OBGyn Episode No OBEpisode recorded.
[2024-04-22 22:20] LABS: HCG Quant, Pregnancy < 1 mIU/mL (1-3)
== END 2024-04-22 15:47 | disposition home or self-care (01) ==
LOC: NCHCN 15:46
PROVIDERS: PCP Family Medicine; Visit Provider Family Medicine
DX: Z30.9 Encounter for contraceptive management, unspecified (principal)
CPT/HCPCS: 84702

== ENCOUNTER 2025-05-03 18:38 | Outpatient (REF) | payer BC, SELFPAY ==
--- NOTE | 2025-05-03 17:00 | SKI_PTH ---
PATIENT: Yamilex Esparza LOC: [facility]#:[id number] AGE/SX: 44/F ROOM: RE05/03/[address]: Yamilex Lindo : 1980 BED: DIS: 05/03/2025 SPEC #: [id number] RECD: 05/04/25 12:01 STATUS: KEVIN MCALLISTER #: [id number] JEFFERSON: 05/03/25 17:[address]: Yamilex Lindo DEPT: Surgical Specimen RECD BY: Echo Edwards Tissues: 1 - SKIN BIOPSY(SHAVE/PUNCH) Procedures: SKIN LEVEL 4 Comments: [id number]
== END 2025-05-03 18:39 | disposition home or self-care (01) ==
LOC: NCHCN 18:38
PROVIDERS: PCP Family Medicine; Visit Provider Family Medicine
DX: D23.61 Other benign neoplasm of skin of right upper limb, including shoulder
CPT/HCPCS: 88305

== ENCOUNTER 2025-05-24 16:25 | Outpatient (REF) | payer BC, SELFPAY ==
[2025-05-24 19:59] LABS: HCG Quant, Pregnancy 648 mIU/mL (1-3)
== END 2025-05-24 16:26 | disposition home or self-care (01) ==
LOC: LBN 16:25
PROVIDERS: PCP Family Medicine; Visit Provider Obstetrics & Gynecology Reproductive Endocrinology
DX: Z32.01 Encounter for pregnancy test, result positive (principal)
CPT/HCPCS: 82670; 84144; 84702

== ENCOUNTER 2025-06-19 20:57 | Outpatient (REF) | payer BC, SELFPAY ==
[2025-06-19 22:13] LABS: TSH 1.09 uIU/mL (0.36-3.74)
== END 2025-06-19 20:58 | disposition home or self-care (01) ==
LOC: LBN 20:57
PROVIDERS: PCP Family Medicine; Visit Provider Student in an Organized Health Care Education/Training Program
DX: E06.3 Autoimmune thyroiditis (principal)
CPT/HCPCS: 84439; 84443

== ENCOUNTER 2025-06-28 10:48 | Outpatient (CLI) | payer BC, SELFPAY ==
[2025-06-28 11:39] LABS: Abs Immature Grans 0.03 10^3/uL (0.0-0.06); HCT 35.8 % (36.0-46.0); HGB 12.0 g/dL (11.2-15.7); Immature Grans % 0.4 %; MCH 29.6 pg (27.0-33.0); MCHC 33.5 % (32.0-36.0); MCV 88 fL (80-95); MPV 9.3 fL (8.0-11.0); Platelet Count 350 10^3/uL (130-400); RBC 4.06 10^6/uL (3.93-5.22); RDW 12.4 % (11.7-14.6); RDW-SD 39.8 fL; WBC 8.48 10^3/uL (4.4-10.8)
[2025-06-28 12:05] LABS: Hemoglobin A1C 5.3 % (<5.7)
[2025-06-28 12:31] LABS: Ferritin 25 ng/mL (7-271); TSH (W/Ref FT4) 3.60 uIU/mL (0.55-4.78)
[2025-06-28 12:40] LABS: ALT 17 U/L (10-49); AST 20 U/L (<34); Albumin 4.0 g/dL (3.4-5.0); Alkaline Phosphatase 100 U/L (46-116); Anion Gap 7.6 mmol/L (3-11); BUN 8 mg/dL (9-23); Bilirubin, Total 0.30 mg/dL (0.2-1.2); CO2 27.4 mmol/L (20.0-31.0); Calcium 9.5 mg/dL (8.3-10.6); Chloride 102 mmol/L (98-107); Glucose 80 mg/dL (74-106); Potassium 4.4 mmol/L (3.5-5.1); Sodium 137 mmol/L (136-145); Total Protein 7.0 g/dL (5.7-8.2)
[2025-06-28 18:28] LABS: Hepatitis C Ab w Rflx HCV PCR Negative (Negative)
[2025-06-28 18:40] LABS: HIV-1/2 Ag & Ab Screen Negative (Negative)
[2025-06-29 11:28] LABS: Rubella IgG Ab (UVM) Positive (See Note)
[2025-06-29 11:40] LABS: Syphilis Serology (RPR) Negative (Negative)
== END 2025-06-28 10:49 | disposition home or self-care (01) ==
LOC: LBO 10:50
PROVIDERS: PCP Family Medicine; Visit Provider Obstetrics & Gynecology
DX: O09.511 Supervision of elderly primigravida, first trimester (principal); Z34.91 Encounter for supervision of normal pregnancy, unspecified, first trimester; Z01.419 Encounter for gynecological examination (general) (routine) without abnormal findings; N93.9 Abnormal uterine and vaginal bleeding, unspecified; O26.891 Other specified pregnancy related conditions, first trimester; Z67.91 Unspecified blood type, Rh negative
CPT/HCPCS: 36415; 80053; 86803; 86850; 86900; 86901; 87340; 87389; 82728; 83036; 84443; 85025; 86592; 86762

== ENCOUNTER 2025-07-17 01:28 | Outpatient (CLI) | payer BC, SELFPAY ==
[2025-07-17 13:07] LABS: TSH 1.75 uIU/mL (0.55-4.78)
== END 2025-07-17 01:29 | disposition home or self-care (01) ==
LOC: LBO 01:28
PROVIDERS: PCP Family Medicine; Visit Provider Advanced Practice Midwife
DX: Z34.91 Encounter for supervision of normal pregnancy, unspecified, first trimester (principal)
CPT/HCPCS: 36415; 84443; 86777; 86778